=== PATIENT | female | born 2000 | race Caucasian/White ===

== ENCOUNTER 2024-10-16 20:08 | Emergency (ER) | payer OTHER, SELFPAY ==
[2024-10-16 20:10] VITALS: BP 118/79; PULSE 70; RESP 18; TEMP 36.6; O2SAT 98; BMI 30.4
[2024-10-16 22:10] VITALS: BP 114/66; PULSE 92; RESP 18; O2SAT 100
--- NOTE | 2024-10-16 22:36 | ED.VIS.FEGU ---
HPI HPI - Female History of Present Illness Chief Complaint: Vag Bld, Preg Informant: patient and spouse/S.O. Narrative Narrative: 17 weeks gestation presents with gush of fluid after intercourse 90 minutes prior to arrival. States clear fluid with standing running down her legs. She states, the car there was fluid on her pants to her knees. No blood. No abdominal pain or cramping. She follows [facility]. She had office visit today with heart tones at 160. She is on vitamins she was told to start taking baby aspirin at 12 weeks gestation. She has no clotting disorders. No urinary symptoms. Prior similar symptoms: No PFSH PFSH Medical History no medical history Home Medications ?Medication ?Instructions ?Recorded ?Last Taken ?Type aspirin 81 mg tablet,delayed 81 mg PO DAILY 10/16/24 Unknown History release (Adult Aspirin Regimen) vit no.95-ferrous 1 tab PO DAILY 10/16/24 Unknown History fumarate 28 mg-folic acid 800 mcg tablet () Allergy/AdvReac Type Severity Reaction Status Date / Time Penicillins Allergy Unknown UNKNOWN Verified 10/16/24 20:12 Family History no significant family his Surgical History no surgical history Social History Smoking Status: Never smoker ROS ROS ED Constitutional Constitutional ED: Denies chills, fever(s) or sweats ENT ENT ED: Denies sore throat Cardiovascular Cardiovascular: Denies chest pain, leg edema, palpitations or racing heartbeat Respiratory/Chest Respiratory/Chest: Denies cough, dyspnea or dyspnea on exertion Gastrointestinal Gastrointestinal: Denies abdominal pain, diarrhea, nausea or vomiting Genitourinary Genitourinary ED: Reports other Details: Vaginal clear fluid, no vaginal bleeding ; Denies dysuria, hematuria or urinary frequency Musculoskeletal Musculoskeletal: Denies back pain, extremity pain or neck pain Integumentary Denies rash or wounds Neurologic Neurologic: Denies headache(s), paresthesias or weakness EXAM Physical Exam Const Vital Signs: 10/16/24 20:10 10/16/24 22:10 10/16/24 23:01 Temperature 97.8 F 98.3 F Temperature Source Temporal Pulse Rate 70 92 91 Respiratory Rate 18 18 16 Blood Pressure 118/79 114/66 114/65 Blood Pressure Mean 92 82 81 Pulse Ox 98 100 99 Oxygen Delivery Method Room Air Room Air Positive well nourished and well developed General Appearance ED: well developed and NAD HEENT Reports moist mucous membranes normocephalic and atraumatic Eyes General Eye ED: Yes normal appearance of both eyes Neck full ROM Chest Wall Chest: Negative for tenderness Resp normal respiratory effort and normal air movement Effort and Inspection: symmetric chest movement; Negative for respiratory distress Cardio regular rate, regular rhythm and no murmurs Peripheral Pulses: pulses 2+ throughout GI non-tender GI Narrative: Slightly gravid abdomen, nontender. Palpation: Negative for guarding or rebound tenderness present Extremity normal to inspection General Extremety ED: Negative for edema or tenderness General Extremity: Negative for edema Neuro oriented x3 and no sensory deficits noted Sensorium / Orientation: awake and alert Skin no rashes or lesions noted and no wounds MDM MDM MDM Narrative Medical decision making narrative: Interventions / MDM: Differential diagnosis: Second trimester , premature rupture of membranes Diagnosis considered but do not suspect: N/A My EKG interpretation: N/A Imaging independently reviewed and interpreted by myself: N/A External documents reviewed: N/A Test considered but not ordered:N/A ED course: Vital stable nontoxic. Bedside ultrasound performed by minus self heart tone 163. Anterior placenta. I did not appreciate much amniotic fluid around the structures. 2220: I spoke with OB with [facility], Leanne Emmanuel, discussed concern for premature rupture of membranes with bedside ultrasound. She states with patient's gestational age that is too early for them the manage here in OB triage. She recommended transfer up to [facility] OB triage team to be seen this evening and evaluated for premature rupture of membranes. This is discussed with patient and significant other. Will discuss with [facility] Transfer. I discussed with [facility] OB Dr. Swartz, discussed the concerns and recommendations from local [facility] OB team. Patient accepted to go to the ED OB triage for evaluation. Patient clinically stable allowed to go by private vehicle. Re-evaluation: stable Disposition discussed with patient/family/significant other: Patient and significant other Case discussed with consulting clinician: [facility] team, [facility] This note was generated with [employer] dictation software. It may contain incorrect words, spelling, and punctuation that were not noted in checking the note before signing. Discharge Plan Triage Chief Complaint: Vag Bld, Preg ED Provider: Shiv Tran Dx/Rx/DC Orders Clinical Impression: Second trimester , Premature rupture of membranes Prescriptions: No Action PNV cmb#95-ferrous fumarate-FA [] 28 mg iron- 800 mcg tablet 1 tab PO DAILY aspirin [Adult Aspirin Regimen] 81 mg tablet,delayed release (DR/EC) 81 mg PO DAILY Primary Care Provider: Lalit Vogel Referrals: Lalit Vogel MD [Primary Care Provider] - Activity Restrictions/Additional Instructions: Go to [facility] ED triage to be evaluated for concerns of premature rupture of membranes. Discussed with Dr. Swartz. Print Language: [place] Disposition Disposition: DC/Tx to Another Type of HCF Discharge Location: [facility] Discharge Date/Time: 10/16/24 23:07
[2024-10-16 23:01] VITALS: BP 114/65; PULSE 91; RESP 16; TEMP 36.8; O2SAT 99
== END 2024-10-16 23:07 | disposition other institution (70) ==
PROVIDERS: Emergency Provider Emergency Medicine; PCP Family Medicine; Referring Provider Emergency Medicine; Visit Provider Emergency Medicine
DX: O42.912 Preterm premature rupture of membranes, unspecified as to length of time between rupture and onset of labor, second trimester (principal); Z3A.17 17 weeks gestation of pregnancy; Z79.82 Long term (current) use of aspirin
CPT/HCPCS: 99284